=== PATIENT | female | born 1950 | race Caucasian/White ===

== ENCOUNTER 2022-07-28 09:51 | Day surgery (SDC) | payer OTHER ==
[~2022-07-28] VITALS: Ht 165.1 cm; Wt 56.7 kg
[2022-07-28] MEDS ORDERED: MIDAZOLAM 5 MG/5 ML VIAL ONE (10:31)
[2022-07-28] MEDS ORDERED: diphenhydrAMINE 50 MG/ML VIAL ONE (10:31)
[2022-07-28] MEDS ORDERED: fentaNYL citrate 0.05 MG/ML VIAL ONE (10:31)
[2022-07-28] MEDS ORDERED: LIDOCAINE 2% 100 MG/5 ML UJET TP ONE (10:32)
[2022-07-28] MEDS ORDERED: MIDAZOLAM 5 MG/5 ML VIAL IV ONE (12:25)
[2022-07-28] MEDS ORDERED: fentaNYL citrate 0.05 MG/ML VIAL IVP ONE (12:25)
== END 2022-07-28 12:45 | disposition home or self-care (01) ==
LOC: MDS 09:51 → MMU 09:51 → MDS 12:45
PROVIDERS: ATTEND Internal Medicine Gastroenterology
DX: K59.00 Constipation, unspecified (principal); C18.0 Malignant neoplasm of cecum; G43.909 Migraine, unspecified, not intractable, without status migrainosus; Z85.828 Personal history of other malignant neoplasm of skin; Z88.5 Allergy status to narcotic agent; Z20.822 Contact with and (suspected) exposure to COVID-19; Z79.899 Other long term (current) drug therapy
CPT/HCPCS: 45380; 87426; 88305; J2250; J3010; J1200

== ENCOUNTER 2022-10-25 13:43 | Inpatient (IN) | payer OTHER ==
[~2022-10-25] VITALS: Ht 172.7 cm; Wt 63.5 kg
--- NOTE | 2022-10-25 00:03 | NUR ---
WAS INFORMED BY ARIELLA FRANCES THAT PATIENT WAS HAVING AN 8/10 PAIN IN HER LOWER ABDOMEN (SHARP). BP WAS 122/89, HR 94. CHECKED PATIENT'S CHART; PATIENT HAS ALLERGY TO MORPHINE AND CODEINE. SPOKE WITH PATIENT, MEDICATION CAUSES SEVERE MIGRAINE. PATIENT DOES NOT WANT DILAUDID. SPOKE WITH PATIENT ABOUT TRAMADOL; PATIENT IS OKAY WITH TRAMADOL. WASTED DILAUDID (WITNESSED BY BRITTANY MOTA), AND PULLED TRAMADOL FOR ARIELLA FRANCES TO ADMINISTER.
[2022-10-25 14:16] VITALS: BP 152/83
--- NOTE | 2022-10-25 14:16 | NUR ---
PATIENT BIBA FROM FACILITY C/O ABDOMINAL PAIN AND CONSTIPATION, PLACE IN BED , AWAITING FOR EDP FOR INITIAL ASSESSMENT.
--- NOTE | 2022-10-25 15:30 | NUR ---
PATIENT REMAINS IN BED, DENIES PAIN AT THIS TIE, WLL CONTINUE TO MOITOR.
[2022-10-25] MEDS ORDERED: ACETAMINOPHEN 325 MG TAB PO ONE (15:35)
[2022-10-25] MEDS ORDERED: KETOROLAC 15 MG/ML VIAL IM ONE (15:35)
[2022-10-25 15:37] LABS: BASOPHILS % (AUTO) 0.3 % (0.0-2.0); EOSINOPHILS # (AUTO) 0.2 K/uL (0-0.4); EOSINOPHILS % (AUTO) 1.5 % (0.0-4.0); HEMOGLOBIN 9.9 g/dL (12.0-16.0); LYMPHOCYTES # (AUTO) 1.7 K/uL (2.5-16.5); LYMPHOCYTES % (AUTO) 14.7 % (20.5-51.1); MEAN CORPUSCULAR HEMOGLOBIN 26 pg (27-31); MEAN CORPUSCULAR HGB CONC 32 g/dL (33-37); MONOCYTES # (AUTO) 0.9 K/uL (0.8-1.0); MONOCYTES % (AUTO) 7.8 % (1.7-9.3); NEUTROPHILS # (AUTO) 8.9 K/uL (1.8-7.7); NEUTROPHILS % (AUTO) 75.7 % (42.2-75.2); PLATELET COUNT (AUTO) 446 K/uL (140-450); RED BLOOD CELL COUNT(AUTO) 3.88 MIL/uL (4.20-5.40); RED CELL DISTRIBUTION WIDTH 17.1 % (11.6-13.7); WHITE BLOOD COUNT (AUTO) 11.7 K/uL (4.8-10.8)
[2022-10-25 16:01] LABS: ALBUMIN 2.7 g/dL (3.4-5.0); AMYLASE 32 U/L (25-115); ANION GAP 11.3 (8-16); ASPARTATE AMINOTRANSFERASE 14 U/L (15-37); CARBON DIOXIDE 28.1 mmol/L (21-32); CHLORIDE 105 mmol/L (98-107); CREATININE 0.7 mg/dL (0.6-1.3); GLUCOSE 115 mg/dL (74-106); LIPASE 57 U/L (73-393); POTASSIUM 3.4 mmol/L (3.5-5.1); SODIUM SERUM 141 mmol/L (136-145); TOTAL BILIRUBIN 0.2 mg/dL (0.0-1.0); UREA NITROGEN, BLOOD 13 mg/dL (7-18)
[2022-10-25] MEDS ORDERED: MINERAL OIL 135 ML ENEM RC ONE (17:00)
[2022-10-25] MEDS ORDERED: LACTULOSE 20 GM/30 ML UDC PO ONE (17:00)
--- NOTE | 2022-10-25 18:00 | NUR ---
PATIENT BACK FROM CT SCAN.
--- NOTE | 2022-10-25 18:25 | NUR ---
EDP WANTS TO HOLD ON FLEET ENEMA.
[2022-10-25] MEDS ORDERED: ONDANSETRON 4 MG/2 ML VIAL IVP PRN (18:40)
[2022-10-25] MEDS ORDERED: HYDROmorphone 1 MG/ML AMP IVP PRN (18:40)
[2022-10-25] MEDS ORDERED: MAGNESIUM OXIDE 400 MG TAB PO PRN (18:40)
[2022-10-25] MEDS ORDERED: KCL 20 MEQ IN 100 mL PREMIX 200 ML IV PRN (18:40)
[2022-10-25] MEDS ORDERED: MAG SULF 2000 MG/WATER PREMIX 50 ML IV PRN (18:40)
[2022-10-25] MEDS: NACL 0.9% 1,000 ML IV SCH (19:30)
--- NOTE | 2022-10-25 20:47 | NUR ---
COVID SWAB COLLECTED AND SENT
--- NOTE | 2022-10-25 23:15 | NUR ---
RECEIVED PT FROM ER NURSE FOR CONTINUITY OF CARE. PT IS AWAKE AND STABLE AT THIS TIME. A&O X4. CURRENTLY ON ROOM AIR WITH NO SIGNS OF DISTRESS NOTED. PT STATES A PAIN LEVEL OF 8/10 IN LOWER ABDOMEN CAUSED BY CONSTIPATION. PT ABDOMEN IS FIRM AND DISTENDED. PT HAS TWO IV SITES LOCATED AT LEFT HAND 24 GAUGE, AND RIGHT AC 20 GAUGE, BOTH INTACT. PT ABLE TO AMBULATE. ORIENTED CLIENT TO ROOM, BATHROOM, CALL LIGHT CONTROLS, AND BED CONTROLS. CALL LIGHT WITHIN REACH, BED TO LOWEST POINT. WILL MONITOR FREQUENTLY THROUGHOUT THE NIGHT.
--- NOTE | 2022-10-25 23:39 | NUR ---
Patient's Plan of Care was discussed and reviewed with ARIELLA FRANCES
--- NOTE | 2022-10-25 23:40 | NUR ---
POC WAS DISCUSSED WITH RN: JUAN DANIEL Crawley. DILAUDID WAS INITIALLY PULLED THEN HELD DUE TO PT ALLERGY TO MORPHINE AND CODEINE, PT EXPRESSED THAT THESE MEDICATIONS CAUSE HER TO HAVE SEVERE MIGRAINE. DILAUDID WAS WASTED AND TRAMADOL PO WAS DRAWN BY RN: JUAN DANIEL AND ADMINISTERED BY ME FOR PT PAIN LEVEL OF 8/10. NO OTHER DISTRESS NOTED. WILL CONTINUE TO MONITOR.
[2022-10-26] VITALS: BP 122/89
[2022-10-26] MEDS: traMADol 50 MG TAB PO PRN ×2 (00:02→23:02)
--- NOTE | 2022-10-26 01:37 | NUR ---
Patient will be admitted to care of [facility] . Admited to [facility]. Will go to room 119 a. Belongings list completed. Report to zara .
[2022-10-26 05:27] LABS: BASOPHILS % (AUTO) 0.5 % (0.0-2.0); EOSINOPHILS # (AUTO) 0.2 K/uL (0-0.4); EOSINOPHILS % (AUTO) 2.4 % (0.0-4.0); HEMATOCRIT 30.9 % (36-48); LYMPHOCYTES # (AUTO) 1.6 K/uL (2.5-16.5); LYMPHOCYTES % (AUTO) 15.7 % (20.5-51.1); MEAN CORPUSCULAR HEMOGLOBIN 26 pg (27-31); MEAN CORPUSCULAR HGB CONC 32 g/dL (33-37); MEAN CORPUSCULAR VOLUME 81.8 fL (80-94); MONOCYTES # (AUTO) 0.9 K/uL (0.8-1.0); MONOCYTES % (AUTO) 9.3 % (1.7-9.3); NEUTROPHILS # (AUTO) 7.3 K/uL (1.8-7.7); NEUTROPHILS % (AUTO) 72.1 % (42.2-75.2); PLATELET COUNT (AUTO) 408 K/uL (140-450); RED BLOOD CELL COUNT(AUTO) 3.78 MIL/uL (4.20-5.40); RED CELL DISTRIBUTION WIDTH 17.1 % (11.6-13.7); WHITE BLOOD COUNT (AUTO) 10.1 K/uL (4.8-10.8)
[2022-10-26 05:51] LABS: ALBUMIN 2.5 g/dL (3.4-5.0); ASPARTATE AMINOTRANSFERASE 15 U/L (15-37); CARBON DIOXIDE 27.8 mmol/L (21-32); CHLORIDE 105 mmol/L (98-107); CREATININE 0.6 mg/dL (0.6-1.3); GLUCOSE 105 mg/dL (74-106); TOTAL BILIRUBIN 0.2 mg/dL (0.0-1.0); UREA NITROGEN, BLOOD 7 mg/dL (7-18)
[2022-10-26 05:55] LABS: POTASSIUM 2.8 mmol/L (3.5-5.1)
[2022-10-26 06:01] LABS: SODIUM SERUM 141 mmol/L (136-145)
--- NOTE | 2022-10-26 06:17 | NUR ---
PT SLEPT IN AND OUT LAST NIGHT. STILL REPORTING PAIN BUT IT IS MORE TOLERABLE. NO BM. PT VOIDED ONCE LAST NIGHT. WILL ENDORSE TO DAY SHIFT NURSE FOR FURTHER CONTINUATION OF CARE.
--- NOTE | 2022-10-26 07:01 | NUR ---
PATIENT'S POTASSIUM 2.8. ADMINISTERED K RIDER TO PATIENT. INFORMED CASTING TRUCKER JUAN DANIEL.
--- NOTE | 2022-10-26 07:15 | NUR ---
ASSUMED CONTINUITY OF CARE. INITIAL ASSESSMENT DONE. KEEP COMFORTABLE ON BED. CALL LIGHT WITHIN REACH.
[2022-10-26 08:00] VITALS: BP 119/67
--- NOTE | 2022-10-26 08:19 | NUR ---
PAGED DR. NORWOOD AND INFORMED THAT PT. CAN'T TOLERATE CURRENT K RIDER INFUSION THAT WAS STARTED AT 0645. DR. NORWOOD GAVE AN ORDER FOR K RIDER WITH LIDOCAINE.
--- NOTE | 2022-10-26 09:19 | NUR ---
PATIENT HAS BEEN SCREENED AND CATEGORIZED MODERATE NUTRITION RISK. PATIENT WILL BE SEEN WITHIN 3-5 DAYS OF ADMISSION. REVIEWED BY PATRICE CHAMORRO RD
[2022-10-26] MEDS ORDERED: POTASSIUM CHLORIDE 40 MEQ, LIDOCAINE 1% 25 MG in NACL 0.9% 250 ML IV SCH (09:30)
--- NOTE | 2022-10-26 09:43 | NUR ---
PT. CAME BACK FROM RADIOLOGY VIA WHEELCHAIR. NO C/O N/V. NO C/O PAIN. KEEP COMFORTABLE ON BED.
[2022-10-26] MEDS: DOCUSATE SODIUM 100 MG GELCAP PO SCH (09:46)
[2022-10-26] MEDS: ENOXAPARIN 40 MG/0.4 ML SYR SUBQ SCH (09:48)
[2022-10-26] MEDS: NACL 0.9% 1,000 ML IV SCH ×2 (11:20→18:58)
--- NOTE | 2022-10-26 15:44 | NUR ---
DC PLANNING ATTEMPTED TO MEET WITH PT AT BEDSIDE TO COMPLETE ASSESSMENT, HOWEVER, PT ON PHONE AND REQUESTED SW TO RETURN AT A LATER TIME. SW TO FOLLOW .
[2022-10-26 16:00] VITALS: BP 111/62
--- NOTE | 2022-10-26 18:44 | NUR ---
DR. MARIN (COVERING DR. TADEO) CAME AND SPOKE TO PT. AT BEDSIDE.
[2022-10-26] MEDS ORDERED: SODIUM PHOSPHATE 118 ML ENEM RC ONE (19:20)
--- NOTE | 2022-10-26 19:20 | NUR ---
REPORT GIVEN TO JIM ROMAN FOR CONTINUITY OF CARE. IVF INFUSING WELL. IN STABLE CONDITION.
--- NOTE | 2022-10-26 19:21 | NUR ---
RECEIVED PT FROM MORNING SHIFT NURSE. PT IS AOX4, AMBULATORY, ABLE TO FOLLOW COMMANDS AND ABLE TO VERBALIZE NEEDS. PT IS ON ROOM AIR AND ON NPO. PT HAS RIGHT AC GAUGE 20 RUNNING WITH NS AT 60ML/HR AND SALINE LOCK ON LEFT WRIST GAUGE 24. PT SKIN IS INTACT. NO COMPLAIN OF PAIN AT THIS THIS TIME. NO S/S OF RESPIRATORY DISTRESS NOTED. ALL SAFETY MEASURES IMPLEMENTED. BED IN LOW POSITION, BED WHEELS ON LOCK AND CALL LIGHT WITHIN REACH.
[2022-10-26] MEDS ORDERED: SODIUM PHOSPHATE 118 ML ENEM RC SCH (19:30)
--- NOTE | 2022-10-26 19:30 | NUR ---
PT REFUSED FOR FLEET ENEMA. EDUCATED THE PT THE IMPORTANCE BUT STILL REFUSED.
--- NOTE | 2022-10-26 23:02 | NUR ---
PT WAS GIVEN PRN PAIN MEDICATION DUE TO ABDOMINAL PAIN WITH THE PAIN SCALE OF 6/10
--- NOTE | 2022-10-27 02:00 | NUR ---
PT IS ON SLEEP. CHEST RISE AND FALL SYMMETRICALLY NOTED. RESPIRATION IS EVEN AND UNLABORED. ALL SAFETY MEASURES IMPLEMENTED. BED IN LOW POSITION, BED WHEELS ON LOCK AND CALL LIGHT WITHIN REACH.
[2022-10-27 04:00] VITALS: BP 141/82
--- NOTE | 2022-10-27 04:28 | NUR ---
CHECKED THE PT, STILL ON SLEEP. CHEST RISE AND FALL SYMMETRICALLY NOTED. RESPIRATION IS EVEN AND UNLABORED. ALL SAFETY MEASURES IMPLEMENTED. BED IN LOW POSITION, BED WHEELS ON LOCK AND CALL LIGHT WITHIN REACH.
[2022-10-27 05:24] LABS: BASOPHILS % (AUTO) 0.4 % (0.0-2.0); EOSINOPHILS # (AUTO) 0.1 K/uL (0-0.4); EOSINOPHILS % (AUTO) 1.8 % (0.0-4.0); HEMATOCRIT 30.5 % (36-48); LYMPHOCYTES # (AUTO) 1.6 K/uL (2.5-16.5); LYMPHOCYTES % (AUTO) 18.7 % (20.5-51.1); MEAN CORPUSCULAR HEMOGLOBIN 26 pg (27-31); MEAN CORPUSCULAR HGB CONC 33 g/dL (33-37); MEAN CORPUSCULAR VOLUME 79.8 fL (80-94); MONOCYTES # (AUTO) 0.8 K/uL (0.8-1.0); MONOCYTES % (AUTO) 9.3 % (1.7-9.3); NEUTROPHILS # (AUTO) 5.8 K/uL (1.8-7.7); NEUTROPHILS % (AUTO) 69.8 % (42.2-75.2); PLATELET COUNT (AUTO) 419 K/uL (140-450); RED BLOOD CELL COUNT(AUTO) 3.82 MIL/uL (4.20-5.40); RED CELL DISTRIBUTION WIDTH 16.9 % (11.6-13.7); WHITE BLOOD COUNT (AUTO) 8.3 K/uL (4.8-10.8)
[2022-10-27 06:07] LABS: ALBUMIN 2.5 g/dL (3.4-5.0); ANION GAP 14.2 (8-16); ASPARTATE AMINOTRANSFERASE 17 U/L (15-37); CHLORIDE 104 mmol/L (98-107); CREATININE 0.5 mg/dL (0.6-1.3); GLUCOSE 103 mg/dL (74-106); POTASSIUM 3.2 mmol/L (3.5-5.1); SODIUM SERUM 140 mmol/L (136-145); TOTAL BILIRUBIN 0.3 mg/dL (0.0-1.0); UREA NITROGEN, BLOOD 9 mg/dL (7-18)
[2022-10-27] MEDS: POTASSIUM CHLORIDE 10 MEQ TABER PO PRN (06:22)
--- NOTE | 2022-10-27 06:22 | NUR ---
K-DUR 40 MEQ WAS GIVEN TO PT DUE TO K LEVEL OF 3.2 ALL SAFETY MEASURES IMPLEMENTED. BED IN LOW POSITION, BED WHEELS ON LOCK AND CALL LIGHT WITHIN REACH.
--- NOTE | 2022-10-27 07:10 | NUR ---
ASSUMED CONTINUITY OF CARE. INITIAL ASSESSMENT DONE. KEEP COMFORTABLE ON BED. CALL LIGHT WITHIN REACH.
--- NOTE | 2022-10-27 07:14 | NUR ---
PT IS STABLE. ENDORSED PT TO MORNING SHIFT NURSE FOR CONTINUITY OF CARE.
[2022-10-27 08:00] VITALS: BP 144/90
[2022-10-27] MEDS: DOCUSATE SODIUM 100 MG GELCAP PO SCH (08:32)
[2022-10-27] MEDS: ENOXAPARIN 40 MG/0.4 ML SYR SUBQ SCH (08:33)
--- NOTE | 2022-10-27 09:36 | NUR ---
DR. NORWOOD CAME INFORMED OF PT. DIET REQUEST. ACCORDING TO DR. NORWOOD, PT. WILL REMAIN NPO DUE TO PARTIAL SBO.
--- NOTE | 2022-10-27 09:50 | NUR ---
DR. NORWOOD SPOKE TO PT. AT BEDSIDE.
--- NOTE | 2022-10-27 10:20 | NUR ---
PT. WENT TO BATHROOM WITH ASSISTANCE FROM NANCY PILLAI. TOLERATED WELL. NO C/O PAIN. NO C/O N/V.
--- NOTE | 2022-10-27 14:51 | NUR ---
10/27/22 RD INITIAL ASSESSMENT COMPLETED PLEASE REFER TO NUTRITION ASSESSMENT UNDER CARE ACTIVITY FOR ESTIMATED NUTRITIONAL NEEDS. 1. MONITOR NPO STATUS 2. WHEN/IF MEDICALLY APPROPRIATE, RECOMMEND HIGH FIBER DIET TOLERATED 3. RD TO FOLLOW-UP 2-3 DAYS, HIGH RISK REVIEWED BY PATRICE CHAMORRO RD
[2022-10-27] MEDS: DEXT 5% /NACL 0.9% 1,000 ML IV SCH (16:49)
--- NOTE | 2022-10-27 19:12 | NUR ---
REPORT GIVEN TO JIM LOCKWOOD IN STABLE CONDITION.
--- NOTE | 2022-10-27 19:13 | NUR ---
RECEIVED PT FROM MORNING SHIFT NURSE. PT IS AOX4 AMBULATORY, ABLE TO FOLLOW COMMANDS AND ABLE TO VERBALIZE NEEDS. PT IS ON ROOM AIR AND ON NPO DIET. PT HAS LEFT WRIST GAUGE 24 RUNNING WITH D5NS AT 75ML/HR. PT SKIN IS INTACT. NO COMPLAIN OF PAIN AT THIS THIS TIME. NO S/S OF RESPIRATORY DISTRESS NOTED. ALL SAFETY MEASURES IMPLEMENTED. BED IN LOW POSITION, BED WHEELS ON LOCK AND CALL LIGHT WITHIN REACH.
[2022-10-27 20:00] VITALS: BP 148/87
--- NOTE | 2022-10-27 20:00 | NUR ---
DR. GREEN CONSULTED THE PT AND TELL THE PT THAT PT IS NOW ON FULL LIQUID DIET. ORDER WAS MADE AND CARRIED OUT.
[2022-10-27] MEDS: ACETAMINOPHEN 325 MG TAB PO PRN (20:18)
--- NOTE | 2022-10-27 20:18 | NUR ---
PT WAS GIVEN TYLENOL DUE TO HEADACHE. NO S/S OF RESPIRATORY DISTRESS NOTED. ALL SAFETY MEASURES IMPLEMENTED. BED IN LOW POSITION, BED WHEELS ON LOCK AND CALL LIGHT WITHIN REACH.
--- NOTE | 2022-10-27 22:00 | NUR ---
PT WAS GIVEN WATER. NO COMPLAIN OF PAIN AT THIS TIME. NO S/S OF RESPIRATORY DISTRESS NOTED. ALL SAFETY MEASURES IMPLEMENTED. BED IN LOW POSITION, BED WHEELS ON LOCK AND CALL LIGHT WITHIN REACH.
--- NOTE | 2022-10-28 | NUR ---
PT WAS ADVICED TO USED THE BEDSIDE COMMODE. PT AGREED ON IT. NO S/S OF RESPIRATORY DISTRESS NOTED. ALL SAFETY MEASURES IMPLEMENTED. BED IN LOW POSITION, BED WHEELS ON LOCK AND CALL LIGHT WITHIN REACH.
--- NOTE | 2022-10-28 02:00 | NUR ---
PT IS ON SLEEP. CHEST RISE AND FALL SYMMETRICALLY NOTED. RESPIRATION IS EVEN AND UNLABORED. NO S/S OF RESPIRATORY DISTRESS NOTED. ALL SAFETY MEASURES IMPLEMENTED. BED IN LOW POSITION, BED WHEELS ON LOCK AND CALL LIGHT WITHIN REACH.
[2022-10-28 04:00] VITALS: BP 123/84
--- NOTE | 2022-10-28 04:00 | NUR ---
CHECKED THE PT, STILL ON SLEEP. CHEST RISE AND FALL SYMMETRICALLY NOTED. RESPIRATION IS EVEN AND UNLABORED. NO S/S OF RESPIRATORY DISTRESS NOTED. ALL SAFETY MEASURES IMPLEMENTED. BED IN LOW POSITION, BED WHEELS ON LOCK AND CALL LIGHT WITHIN REACH.
[2022-10-28] MEDS: ACETAMINOPHEN 325 MG TAB PO PRN (05:18)
--- NOTE | 2022-10-28 05:18 | NUR ---
TYLENOL WAS GIVEN TO PT DUE TO HEADACHE. ALL SAFETY MEASURES IMPLEMENTED. BED IN LOW POSITION, BED WHEELS ON LOCK AND CALL LIGHT WITHIN REACH.
[2022-10-28 05:32] LABS: BASOPHILS % (AUTO) 0.2 % (0.0-2.0); EOSINOPHILS # (AUTO) 0.1 K/uL (0-0.4); EOSINOPHILS % (AUTO) 1.5 % (0.0-4.0); HEMOGLOBIN 10.3 g/dL (12.0-16.0); LYMPHOCYTES % (AUTO) 12.3 % (20.5-51.1); MEAN CORPUSCULAR HEMOGLOBIN 26 pg (27-31); MEAN CORPUSCULAR HGB CONC 32 g/dL (33-37); MONOCYTES # (AUTO) 0.6 K/uL (0.8-1.0); MONOCYTES % (AUTO) 7.5 % (1.7-9.3); NEUTROPHILS # (AUTO) 6.1 K/uL (1.8-7.7); NEUTROPHILS % (AUTO) 78.5 % (42.2-75.2); PLATELET COUNT (AUTO) 436 K/uL (140-450); RED BLOOD CELL COUNT(AUTO) 4.01 MIL/uL (4.20-5.40); RED CELL DISTRIBUTION WIDTH 16.9 % (11.6-13.7); WHITE BLOOD COUNT (AUTO) 7.8 K/uL (4.8-10.8)
[2022-10-28] MEDS: DEXT 5% /NACL 0.9% 1,000 ML IV SCH ×2 (06:04→18:55)
[2022-10-28] MEDS: POTASSIUM CHLORIDE 10 MEQ TABER PO PRN (06:29)
--- NOTE | 2022-10-28 06:29 | NUR ---
K-DUR 40 MEQ WAS GIVEN TO PT DUE TO K LEVEL OF 3.4 ALL SAFETY MEASURES IMPLEMENTED. BED IN LOW POSITION, BED WHEELS ON LOCK AND CALL LIGHT WITHIN REACH.
--- NOTE | 2022-10-28 07:20 | NUR ---
RECEIVED REPORT FROM CONCRETE PUMP OPERATOR FOR CONTINUITY OF CARE. INITIAL ASSESSMENT DONE. ALERT AND ORIENTED X4. RESP. EVEN AND UNLABORED. IVF INFUSING WELL. NO C/O PAIN OR DISCOMFORT. CALL LIGHT KEPT WITHIN REACH. WILL CONTINUE TO MONITOR.
--- NOTE | 2022-10-28 07:20 | NUR ---
PT IS STABLE. ENDORSED PT TO MORNING SHIFT NURSE FOR CONTINUITY OF CARE.
[2022-10-28 08:00] VITALS: BP 141/80
[2022-10-28] MEDS: DOCUSATE SODIUM 100 MG GELCAP PO SCH (09:00)
[2022-10-28] MEDS: ENOXAPARIN 40 MG/0.4 ML SYR SUBQ SCH (09:06)
--- NOTE | 2022-10-28 09:06 | NUR ---
SCHEDULED DOCUSATE SODIUM WAS NOT GIVEN D/T PT REFUSED, DIARRHEA, LOVENOX GIVEN. TOLERATING WELL.
[2022-10-28 09:50] LABS: TOTAL BILIRUBIN 0.4 mg/dL (0.0-1.0)
[2022-10-28 10:02] LABS: ALBUMIN 2.5 g/dL (3.4-5.0)
[2022-10-28 10:16] LABS: ANION GAP 17.1 (8-16); CHLORIDE 101 mmol/L (98-107); POTASSIUM 3.5 mmol/L (3.5-5.1); SODIUM SERUM 136 mmol/L (136-145)
[2022-10-28 10:17] LABS: ASPARTATE AMINOTRANSFERASE 22 U/L (15-37); CARBON DIOXIDE 21.4 mmol/L (21-32); CREATININE 0.5 mg/dL (0.6-1.3); GLUCOSE 112 mg/dL (74-106); UREA NITROGEN, BLOOD 6 mg/dL (7-18)
[2022-10-28] MEDS ORDERED: SODIUM PHOSPHATE 118 ML ENEM RC SCH (13:00)
--- NOTE | 2022-10-28 14:36 | NUR ---
DC PLANNING ASSESSMENT COMPLETE PLEASE REFER TO ASSESSMENT FOR ADDITIONAL DETAILS PT REPORTS TENTATIVE DC PLAN IS TO RETURN HOME, ONCE MEDICALLY STABLE. PT REPORTS SHE MAY REQUIRE TRANSPORTATION BE ARRANGED WITH [facility] Addendum: 10/28/22 at 1436 by Felipa Horne SS Amended: Links added.
--- NOTE | 2022-10-28 15:33 | NUR ---
FLEET ENEMA GIVEN. TOLERATING WELL.
--- NOTE | 2022-10-28 18:35 | NUR ---
SEEN BY DR. MARIN. DIET UPGRADE TO MECHANICAL SOFT DIET.
--- NOTE | 2022-10-28 19:30 | NUR ---
REPORT GIVEN TO NIGHT NURSE JUAN DANIEL FOR CONTINUITY OF CARE. REMAINS STABLE.
--- NOTE | 2022-10-28 19:31 | NUR ---
RECEIVED REPORT FROM DAY SHIFT NURSE FOR CONTINUITY OF CARE. PT AWAKE AT THIS TIME, A&O X4. ON ROOM AIR WITH NO SIGNS OF APPARENT DISTRESS NOTED. PT HAS STATED SOME MILD PAIN IN ABDOMEN, BUT STATES IT IS TOLERABLE AND PAIN MEDICATION IS NOT NECESSARY. PT'S IV SITE WAS LEAKING AND REMOVED, WILL ATTEMPT TO INSERT A NEW IV. PT STABLE AT THIS TIME, WILL MONITOR FREQUENTLY.
[2022-10-28 20:00] VITALS: BP 145/86
--- NOTE | 2022-10-28 20:00 | NUR ---
Patient's Plan of Care was discussed and reviewed with J2EE JAVA DEVELOPER: JUAN DANIEL ROSE
--- NOTE | 2022-10-28 23:01 | NUR ---
PT REFUSED NEW IV INSERTION. EDUCATED THE PT AND AFTER EXPLAINING THE RISKS AND BENEFITS OF REFUSING A NEW IV INSERTION, PT STILL REFUSED STATING, "I SHOULD BE GOING HOME VERY SOON AND I DO NOT THINK IT'S NECESSARY". WILL ATTEMPT TO RE-EDUCATE THE PT AT A LATER TIME.
--- NOTE | 2022-10-29 02:17 | NUR ---
PT ASLEEP IN BED, RESPIRATIONS EVEN AND UNLABORED. WILL CONTINUE MONITORING THE PT
--- NOTE | 2022-10-29 02:47 | NUR ---
PT AWAKE AT THIS TIME. STILL REFUSING NEW IV INSERTION, STATES SHE IS LEAVING SOON AND HER ARM IS SORE. INFORMED SUBGRADE ROLLER OPERATOR DR OF PT'S DECISION. WILL CONTINUE TO MONITOR.
[2022-10-29 04:00] VITALS: BP 122/71
[2022-10-29 05:52] LABS: BASOPHILS % (AUTO) 0.3 % (0.0-2.0); EOSINOPHILS # (AUTO) 0.2 K/uL (0-0.4); EOSINOPHILS % (AUTO) 1.6 % (0.0-4.0); HEMATOCRIT 32.4 % (36-48); HEMOGLOBIN 10.5 g/dL (12.0-16.0); LYMPHOCYTES # (AUTO) 1.5 K/uL (2.5-16.5); LYMPHOCYTES % (AUTO) 15.4 % (20.5-51.1); MEAN CORPUSCULAR HEMOGLOBIN 26 pg (27-31); MEAN CORPUSCULAR HGB CONC 32 g/dL (33-37); MEAN CORPUSCULAR VOLUME 79.6 fL (80-94); MONOCYTES % (AUTO) 10.6 % (1.7-9.3); NEUTROPHILS # (AUTO) 6.9 K/uL (1.8-7.7); NEUTROPHILS % (AUTO) 72.1 % (42.2-75.2); PLATELET COUNT (AUTO) 466 K/uL (140-450); RED BLOOD CELL COUNT(AUTO) 4.08 MIL/uL (4.20-5.40); RED CELL DISTRIBUTION WIDTH 17.2 % (11.6-13.7); WHITE BLOOD COUNT (AUTO) 9.6 K/uL (4.8-10.8)
--- NOTE | 2022-10-29 06:26 | NUR ---
PT ASLEEP AT THIS TIME. CHEST RISE AND FALL NOTED. RESPIRATIONS EVEN AND UNLABORED. WILL ENDORSE TO DAY SHIFT NURSE FOR CONTINUITY OF CARE.
--- NOTE | 2022-10-29 07:10 | NUR ---
RECEIVED REPORT FROM PLATFORM ATTENDANT JUAN DANIEL FOR CONTINUITY OF CARE. INITIAL ASSESSMENT DONE. PT ASLEEP AT THIS TIME. NO IV ACCESS, PT REFUSED FOR REINSERTION. NOT IN ANY DISTRESS NOTED. CALL LIGHT KEPT WITHIN REACH. WILL CONTINUE TO MONITOR.
[2022-10-29 08:00] VITALS: BP 135/82
[2022-10-29] MEDS: DEXT 5% /NACL 0.9% 1,000 ML IV SCH (08:15)
[2022-10-29 09:07] LABS: ALBUMIN 2.6 g/dL (3.4-5.0); ANION GAP 18.1 (8-16); ASPARTATE AMINOTRANSFERASE 19 U/L (15-37); CARBON DIOXIDE 22.1 mmol/L (21-32); CHLORIDE 105 mmol/L (98-107); CREATININE 0.6 mg/dL (0.6-1.3); GLUCOSE 124 mg/dL (74-106); MAGNESIUM 1.9 mg/dL (1.8-2.4); POTASSIUM 3.2 mmol/L (3.5-5.1); SODIUM SERUM 142 mmol/L (136-145); TOTAL BILIRUBIN 0.2 mg/dL (0.0-1.0); UREA NITROGEN, BLOOD 7 mg/dL (7-18)
[2022-10-29] MEDS ORDERED: DOCU-299 PO (09:29)
[2022-10-29] MEDS ORDERED: NA P133N1 RC (09:29)
[2022-10-29] MEDS: DOCUSATE SODIUM 100 MG GELCAP PO SCH (09:45)
[2022-10-29] MEDS: ENOXAPARIN 40 MG/0.4 ML SYR SUBQ SCH (09:48)
--- NOTE | 2022-10-29 09:48 | NUR ---
SCHEDULED MEDICATION GIVEN. TOLERATING WELL.
--- NOTE | 2022-10-29 13:18 | NUR ---
TRANSPORTATION SETUP WITH [phone] FOR GURNEY TRANSPORT WITH SCHEDULED SAND HAULER TIME 1400. CALLED [facility] AND SPOKE WITH DHEERAJ WHO CONFIRMED 1400 TRIP AUTH#[id number] WITH [employer] [phone].
--- NOTE | 2022-10-29 13:55 | NUR ---
PT LEFT. DISCHARGE TO HOME. TRANSPORTED BY [facility]. ACCOMPANIED BY 2 MALE TRANSPORTER. ALERT AND ORIENTED X4. ID BAND REMOVE. PERSONAL BELONGINGS TAKEN. DISCHARGE PAPERWORKS SIGN AND DISCUSS BY PT. REMAINS STABLE.
== END 2022-10-29 13:55 | disposition home or self-care (01) | DRG 389 ==
LOC: MED 13:43 → MMU 18:49 → MTU 22:14
PROVIDERS: ADMIT Student in an Organized Health Care Education/Training Program; ATTEND Student in an Organized Health Care Education/Training Program
DX: K56.609 Unspecified intestinal obstruction, unspecified as to partial versus complete obstruction (principal); C78.7 Secondary malignant neoplasm of liver and intrahepatic bile duct; E44.1 Mild protein-calorie malnutrition; I10 Essential (primary) hypertension; Z68.21 Body mass index [BMI] 21.0-21.9, adult; E78.5 Hyperlipidemia, unspecified; Z20.822 Contact with and (suspected) exposure to COVID-19; D72.829 Elevated white blood cell count, unspecified; Z88.5 Allergy status to narcotic agent; Z85.038 Personal history of other malignant neoplasm of large intestine
CPT/HCPCS: 36415; 74250; 80053; 82150; 82378; 83690; 83735; 85025; 87081; 96372; 99285; J1170; J1650; J1885; J2001; J3480; J7030; Q0092; Q9967